=== PATIENT | male | born 1985 | race African-American/Black ===

== ENCOUNTER 2017-01-30 18:54 | Emergency (ER) | payer SELFPAY ==
[~2017-01-30] VITALS: Ht 172.7 cm; Wt 64.8 kg
[2017-01-30 20:03] LABS: POINT-OF-CARE METER ID UU13113702
[2017-01-30] MEDS ORDERED: KEFLEX500 MG PO (21:04)
[2017-01-30] MEDS ORDERED: BACTROBAN CREAM15 GM TP (21:04)
[2017-01-30] MEDS ORDERED: NOVOLOG 10100 UNITS/ SC (21:04)
[2017-01-30] MEDS ORDERED: LANTUS 3 M100 UNITS1 SC (21:04)
[2017-01-30 21:16] VITALS: BP 123/87
== END 2017-01-30 21:17 | disposition home or self-care (01) ==
LOC: EME 18:54
PROVIDERS: Physician Assistant
DX: S61.202A Unspecified open wound of right middle finger without damage to nail, initial encounter (principal); L08.9 Local infection of the skin and subcutaneous tissue, unspecified; X58.XXXA Exposure to other specified factors, initial encounter; E10.65 Type 1 diabetes mellitus with hyperglycemia; Z76.0 Encounter for issue of repeat prescription
CPT/HCPCS: 73140; 82948; 99281; 99284